=== PATIENT | female | born 1955 | race Caucasian/White ===

== ENCOUNTER 2019-10-26 06:55 | Day surgery (SDC) | payer MEDICAID ==
[~2019-10-26] VITALS: Ht 147.3 cm; Wt 58.0 kg
[~2019-10-26 06:55] MED LIST: SODIUM CHLORIDE 0.9% 1,000 ML IV ONE; SODIUM CHLORIDE 0.9% 1,000 ML ONE
[2019-10-26] MEDS ORDERED: FentaNYL CITRATE-PF 100 MCG/2 ML VIAL ONE (07:37)
[2019-10-26] MEDS ORDERED: MIDAZOLAM HCL 2 MG/2 ML VIAL ONE (07:37)
[2019-10-26] MEDS ORDERED: MONT10TA26 PO (07:53)
[2019-10-26] MEDS ORDERED: FOLI1 PO (07:53)
[2019-10-26] MEDS ORDERED: ZOLP10TA2 PO (07:53)
[2019-10-26] MEDS ORDERED: SUCR1TAB PO (07:53)
[2019-10-26] MEDS ORDERED: RANI150T7 PO (07:53)
[2019-10-26] MEDS ORDERED: ESCI10TA61 PO (07:53)
[2019-10-26] MEDS ORDERED: CHOL100018 PO (07:53)
[2019-10-26] MEDS ORDERED: IBUP-1554 PO (07:53)
[2019-10-26] MEDS ORDERED: LOSA100T58 PO (07:53)
[2019-10-26] MEDS ORDERED: AMOX1TAB16 PO (07:53)
[2019-10-26] MEDS ORDERED: MethylPREDNISolone SOD SUCC 125 MG/2 ML VIAL IVP ONE (09:15)
[2019-10-26] MEDS ORDERED: MethylPREDNISolone SOD SUCC 125 MG/2 ML VIAL ONE (09:41)
[2019-10-26] MEDS ORDERED: BENZOCAINE 20% 50 MCG/SPRAY 57 GM ONE (15:56)
[2019-10-26] MEDS ORDERED: ALBUTEROL SULFATE 2.5 MG/0.5 ML NEB SOLUTION NEB ONE (15:56)
[2019-10-26] MEDS ORDERED: LIDOCAINE 2% 30 ML JELLY ONE (15:56)
[2019-10-26] MEDS ORDERED: OXYGEN THERAPY IH SCH (20:00)
== END 2019-10-26 11:30 | disposition home or self-care (01) ==
LOC: SURGERY 06:55
PROVIDERS: ATTEND Internal Medicine Critical Care Medicine
DX: R05 Cough (principal); R91.1 Solitary pulmonary nodule; J34.89 Other specified disorders of nose and nasal sinuses; J98.8 Other specified respiratory disorders; J38.4 Edema of larynx; B37.0 Candidal stomatitis; G47.30 Sleep apnea, unspecified; M19.90 Unspecified osteoarthritis, unspecified site; I10 Essential (primary) hypertension; Z88.1 Allergy status to other antibiotic agents; Z90.49 Acquired absence of other specified parts of digestive tract; Z98.890 Other specified postprocedural states; Z79.899 Other long term (current) drug therapy; R19.00 Intra-abdominal and pelvic swelling, mass and lump, unspecified site
CPT/HCPCS: 31623; 31624; 71045; 87070; 87101; 87206; 87220; 88184; 88185; J2250; J2930; J3010; J7030; 87015; 87205; 88108; 88312